=== PATIENT | female | born 2000 | race Asian ===

== ENCOUNTER 2021-05-01 09:07 | Emergency (ER) | payer OTHER ==
[~2021-05-01] VITALS: Ht 139.7 cm; Wt 41.4 kg
[2021-05-01] MEDS ORDERED: ONDANSETRON 2MG/ML, 2ML ONE (10:13)
[2021-05-01] MEDS ORDERED: KETOROLAC 30 MG/1 ML ONE (10:13)
[2021-05-01] MEDS ORDERED: MORPHINE SULFATE 4 MG/ML, 1ML ONE (10:13)
--- NOTE | 2021-05-01 10:22 | NUR ---
OOB FOR UA, VSS, REFUSED ALL MEDS BC FEELS BETTER.
[2021-05-01] MEDS ORDERED: ONDANSETRON 2MG/ML, 2ML IVPush ONE (10:30)
[2021-05-01] MEDS ORDERED: MORPHINE SULFATE 4 MG/ML, 1ML IVPush PRN (10:30)
[2021-05-01] MEDS ORDERED: KETOROLAC 30 MG/1 ML IVPush ONE (10:30)
[2021-05-01 10:38] LABS: BASOPHILS % (AUTO) 0 % (0-1); EOSINOPHILS % (AUTO) 3 % (1-7); LYMPHOCYTES % (AUTO) 24 % (22-44); MEAN CORPUSCULAR HEMOGLOBIN 28.7 pg (27.0-34.8); MEAN CORPUSCULAR HGB CONC 34.1 g/dL (32.4-35.8); MEAN PLATELET VOLUME 10.4 fL (7.4-10.4); MONOCYTES % (AUTO) 5 % (2-9); NEUTROPHILS % (AUTO) 68 % (42-75); PLATELET COUNT 280 x10^3/uL (130-400); RED BLOOD COUNT 4.75 x10^6/uL (3.82-5.3)
[2021-05-01 10:44] LABS: MICROSCOPIC AUTO
[2021-05-01 10:48] LABS: ALBUMIN 4.3 g/dL (3.4-5.0); ANION GAP 13 mmol/L (5-15); CALCIUM 9.7 mg/dL (8.5-10.1); CHLORIDE 109 mmol/L (98-107)
[2021-05-01 10:54] LABS: ALANINE AMINOTRANSFERASE 22 U/L (12-78); ALKALINE PHOSPHATASE 99 U/L (45-117); BILIRUBIN,TOTAL 0.5 mg/dL (0.2-1.0); CREATININE 0.93 mg/dL (0.55-1.02); TOTAL PROTEIN 8.7 g/dL (6.4-8.2)
--- NOTE | 2021-05-01 10:56 | NUR ---
REPORT FROM ELY SLOAN.
--- NOTE | 2021-05-01 11:49 | NUR ---
PT RESTING IN NAD, VSS.
[2021-05-01 12:41] VITALS: BP 108/58
== END 2021-05-01 12:43 | disposition home or self-care (01) ==
LOC: ED 09:53
DX: R10.11 Right upper quadrant pain (principal); R11.2 Nausea with vomiting, unspecified; M54.9 Dorsalgia, unspecified
CPT/HCPCS: 36415; 74176; 80053; 81001; 83690; 84703; 85025; 87086; 99284